=== PATIENT | female | born 1950 | race Caucasian/White ===

== ENCOUNTER 2018-07-06 17:24 | Inpatient (IN) | payer MEDICARE, MEDICAID ==
[2018-07-06] MEDS ORDERED: ACETAMINOPHEN 500 MG TABLET PO ONE (18:22)
--- NOTE | 2018-07-06 18:26 | Emergency Department Record ---
History of Present Illness - General Chief Complaint: Fever Stated Complaint: LOW BP,FEVER Time Seen by Provider: 07/06/18 18:10 Source: Patient Mode of Arrival: Wheelchair Limitations: No limitations - History of Present Illness Initial Comments: 68 yo female presents to ED for evaluation of fatigue and fever symptoms that began last night. Patient reports productive cough symptoms, low back pain, and diffuse myalgias. Patient reports a history of low blood pressure (90's/60' s) at her baseline, reports that she was told approximately 11 years ago that her adrenal glands were not functioning appropriately, but has not taken a supplemental steroid since that time. Complaint: Fever Onset/Timin -: Hour(s) Temperature Source: Oral Associated Symptoms: Nausea Treatments Prior to Arrival: None - Related Data Allergies Allergy/AdvReac Type Severity Reaction Status Date / Time NO KNOWN DRUG ALLERGY Allergy Unknown PT UNSURE Uncoded 07/06/18 17:39 OF REACTION Travel Screening - Travel/Exposure Within Last 30 Days Have you traveled within the last 30 days?: No - Travel Symptoms Symptom Screening: Fever (GT 100.4) Review of Systems Constitutional: Reports: Fever. Denies: Chills, Malaise, Night sweats Eyes: Denies: Eye discharge, Eye pain ENT: Denies: Congestion, Ear pain, Epistaxis Respiratory: Reports: Cough. Denies: Dyspnea Cardiovascular: Denies: Chest pain, Dyspnea on exertion Endocrine: Reports: Fatigue. Denies: Heat or cold intolerance Gastrointestinal: Denies: Abdominal pain, Nausea, Vomiting Genitourinary: Denies: Incontinence, Retention Musculoskeletal: Reports: Back pain. Denies: Arthralgia Skin: Denies: Bruising, Change in color Neurological: Denies: Abnormal gait, Confusion, Headache, Tingling, Tremors Psychiatric: Denies: Anxiety Hematological/Lymphatic: Denies: Anemia, Blood Clots Past Medical History - SOCIAL HISTORY Smoking Status: Current every day smoker Alcohol Use: None Drug Use: None - RESPIRATORY Hx Respiratory Disorders: Yes Hx Pneumonia: Yes - CARDIOVASCULAR Hx Cardio Disorders: No - NEURO Hx Neuro Disorders: No - GI Hx GI Disorders: No - Hx Genitourinary Disorders: No - ENDOCRINE Hx Endocrine Disorders: Yes Hx Thyroid Disease: Yes - MUSCULOSKELETAL Hx Musculoskeletal Disorders: No - PSYCH Hx Psych Problems: No - HEMATOLOGY/ONCOLOGY Hx Hematology/Oncology Disorders: No Family Medical History Any Significant Family History?: Yes Hx Cancer: Mother Hx Heart Disease: Father Hx Resp Disorders: Brother/Sister Physical Exam - General General Appearance: Alert, Oriented x3, Cooperative, Mild distress, Other (BP 96 /66 currently, IVFs infusing.) Limitations: No limitations - Head Head exam: Atraumatic, Normocephalic, Normal inspection Head exam detail: negative: Abrasion, Contusion, Sheth's sign, General tenderness, Hematoma, Laceration - Eye Eye exam: Normal appearance. negative: Conjunctival injection, Periorbital swelling, Periorbital tenderness, Scleral icterus - ENT Ear exam: negative: Auricular hematoma, Auricular trauma Nasal Exam: negative: Active bleeding, Discharge, Dried blood, Foreign body Mouth exam: negative: Drooling, Laceration, Muffled voice, Tongue elevation - Neck Neck exam: Normal inspection. negative: Meningismus, Tenderness - Respiratory Respiratory exam: Rhonchi. negative: Respiratory distress (Mild rhonchi right) , Stridor, Wheezes - Cardiovascular Cardiovascular Exam: Regular rate, Normal rhythm, Normal heart sounds - GI/Abdominal GI/Abdominal exam: Soft. negative: Rebound, Rigid, Tenderness - Rectal Rectal exam: Deferred - exam: Deferred - Extremities Extremities exam: Normal inspection. negative: Pedal edema, Tenderness - Neurological Neurological exam: Alert, Normal gait, Oriented X3 - Psychiatric Psychiatric exam: Normal affect, Normal mood - Skin Skin exam: Normal color. negative: Abrasion Type of lesion: negative: abrasion Course Vital Signs 07/06/18 07/06/18 17:29 17:44 Temperature 100.8 F H Pulse Rate 80 Respiratory 18 Rate Blood Pressure 81/58 Blood Pressure 96/59 [Right Arm] Pulse Ox 94 L - Reevaluation(s) Reevaluation #1: 07/06/18 19:33 Initial laboratory studies were reviewed: WBC 13.1 Lactic acid 1.0. UA pending at this time. Reevaluation #2: 07/06/18 19:37 Patient was reassessed, BP improved to 114/60's on re-examination. Patient will attempt to provide urine sample at this time. Rocephin ordered to infuse. Reevaluation #3: 07/06/18 20:00 CXR: Recurrence of pneumonia RML/RLL on examination COPD Patient has provided UA sample, awaiting results to determine subsequent antibiotic coverage and admission. Reevaluation #4: 07/06/18 20:14 UA was reviewed and appears negative for infection. Zithromax ordered to infuse, will admit for further evaluation and treatment. 07/06/18 20:20 Case was discussed with Dr. Dawkins, will admit for further evaluation and treatment. Medical Decision Making - Lab Data Result diagrams: 07/06/18 18:30 07/06/18 18:30 Disposition Disposition: Admit Clinical Impression: CAP (community acquired pneumonia) Qualifiers: Laterality: right Lung location: middle lobe of lung Qualified Code(s): J18.1 - Lobar pneumonia, unspecified organism Hypotension Qualifiers: Hypotension type: unspecified hypotension type Qualified Code(s): I95.9 - Hypotension, unspecified Disposition: Still a Patient at [facility] Decision to Admit: Admit from ER Decision to Admit Date: 07/06/18 Decision to Admit Time: 20:20 Condition: (2) Stable Forms: Patient Portal Access Time of Disposition: 20:20 Quality - Quality Measures Quality Measures: N/A - Blood Pressure Screening Does Patient Have Any of the Following: No Blood Pressure Classification: Normal BP Reading Systolic Measurement: 81 Diastolic Measurement: 58 Screening for High Blood Pressure: < Normal BP, F/U Not Required > [[id number]]
[2018-07-06] MEDS ORDERED: 0.9 % SODIUM CHLORIDE 1000ML 1,000 ML IV SCH (18:30)
[2018-07-06 18:36] LABS: HEMATOCRIT 43.5 % (35.0-47.0); HEMOGLOBIN 14.4 gm/dl (11.6-16.0); MEAN CELL VOLUME 94.6 fl (81-97); MEAN CORPUSCULAR HEMOGLOBIN 31.3 pg (27-33); MEAN CORPUSCULAR HGB CONC 33.1 g/dl (32-36); MEAN PLATELET VOLUME 11.2 fl (7.4-10.4); PLATELET COUNT 279 K/uL (130-400); RED CELL DISTRIBUTION WIDTH 13.5 % (11.5-14.5); WHITE BLOOD COUNT W/O DIFF 13.1 K/uL (4.2-12.2)
[2018-07-06 18:50] LABS: BLOOD UREA NITROGEN 15 mg/dL (8-23); CREATININE 0.7 mg/dL (0.5-0.9); EST GLOMERULAR FILTRATION RATE > 60 mL/min
[2018-07-06 18:51] LABS: TOTAL PROTEIN 6.9 g/dL (6.6-8.7)
[2018-07-06 18:53] LABS: GLUCOSE,RANDOM 88 mg/dL (74-109)
[2018-07-06 18:55] LABS: ALB/GLOB RATIO 1.6 (1.1-1.8); ALBUMIN 4.2 g/dL (4.0-5.0); ALT/SGPT 10 U/L (<33); AST/SGOT 17 U/L (10.0-35.0)
[2018-07-06 18:56] LABS: ALKALINE PHOSPHATASE 73 U/L (35-104)
[2018-07-06] MEDS ORDERED: CEFTRIAXONE 1GM/50ML BAG 1 GM/50 ML BAG IVPB ONE (19:37)
[2018-07-06 19:57] LABS: URINE APPEARANCE CLEAR; URINE BILIRUBIN NEGATIVE (NEGATIVE); URINE BLOOD SMALL (NEGATIVE); URINE COLOR YELLOW; URINE GLUCOSE (UA) NEGATIVE (NEGATIVE); URINE KETONE 15 mg/dL (NEGATIVE); URINE LEUKOCYTE ESTERASE NEGATIVE (NEGATIVE); URINE NITRITE NEGATIVE (NEGATIVE); URINE PROTEIN NEGATIVE (NEGATIVE); URINE UROBILINOGEN 0.2 E.U./dL (0.20 - 1.00)
[2018-07-06 20:12] LABS: URINE RBC 0 - 2 (NONE SEEN); URINE WBC NONE SEEN (0-2/hpf)
[2018-07-06 20:13] LABS: URINE MUCUS LIGHT
[2018-07-06] MEDS ORDERED: AZITHROMYCIN 500 MG in 0.9 % SODIUM CHLORIDE 250ML 250 ML IVPB ONE (20:15)
[2018-07-06] MEDS ORDERED: CEFTRIAXONE SODIUM 1 GM in 0.9 % SODIUM CHLORIDE 100ML 100 ML IVPB SCH (21:51)
[2018-07-06] MEDS ORDERED: LEVOTHYROXINE SODIUM 25 MCG TABLET PO SCH (21:51)
[2018-07-06] MEDS ORDERED: AZITHROMYCIN 500 MG in 0.9 % SODIUM CHLORIDE 250ML 250 ML IVPB SCH (21:51)
[2018-07-06] MEDS: 0.9 % SODIUM CHLORIDE 1000ML 1,000 ML IV PRN (22:31)
[2018-07-07] MEDS: ACETAMINOPHEN 500 MG TABLET PO PRN ×4 (05:23→23:41)
--- NOTE | 2018-07-07 05:38 | RADIOLOGY REPORT ---
EXAM: CHEST, TWO VIEWS HISTORY: PATIENT FEELING ILL STARTING YESTERDAY. TECHNIQUE: PA and lateral views of the chest were obtained. Comparison: Two view chest 01/24/17. FINDINGS: There is again seen to be some infiltrate on the right particularly in the mid to lower lung. This may represent acute pneumonitis that has recurred in a somewhat similar distribution in the right mid to lower lung. No definite acute infiltrate seen in the left. Apical pleural thickening bilaterally asymmetrically more prominent on the right which was the case previously as well. The heart is relatively small. The lungs appear hyperinflated suggesting underlying COPD. Mild scoliosis. IMPRESSION: 1. HYPERINFLATION CONSISTENT WITH COPD BEFORE. 2. THERE IS SOME INFILTRATE SCATTERED IN THE RIGHT MID TO LOWER LUNG WHICH MAY REPRESENT RECURRENT ACUTE PNEUMONITIS IN THIS LOCATION WITH A SOMEWHAT SIMILAR APPEARANCE SEEN BACK ON 01/24/17. 3. APICAL PLEURAL THICKENING BILATERALLY RIGHT GREATER THAN LEFT SIMILAR TO BEFORE. 4. SCOLIOSIS AGAIN NOTED. JOB NUMBER: [id number] MTDD
[2018-07-07] MEDS: LEVOTHYROXINE SODIUM 25 MCG TABLET PO SCH (06:37)
[2018-07-07] MEDS: 0.9 % SODIUM CHLORIDE 1000ML 1,000 ML IV PRN ×3 (06:38→23:43)
[2018-07-07 09:54] LABS: HEMATOCRIT 37.4 % (35.0-47.0); HEMOGLOBIN 12.3 gm/dl (11.6-16.0); MEAN CELL VOLUME 96.4 fl (81-97); MEAN CORPUSCULAR HEMOGLOBIN 31.7 pg (27-33); MEAN CORPUSCULAR HGB CONC 32.9 g/dl (32-36); MEAN PLATELET VOLUME 10.8 fl (7.4-10.4); PLATELET COUNT 225 K/uL (130-400); RED BLOOD COUNT 3.88 M/uL (3.80-5.40); RED CELL DISTRIBUTION WIDTH 13.5 % (11.5-14.5); WHITE BLOOD COUNT W/O DIFF 10.6 K/uL (4.2-12.2)
[2018-07-07] MEDS: GUAIFENESIN 600 MG TABCR PO SCH ×2 (10:09→21:44)
[2018-07-07 10:11] LABS: BLOOD UREA NITROGEN 12 mg/dL (8-23); CREATININE 0.6 mg/dL (0.5-0.9); EST GLOMERULAR FILTRATION RATE > 60 mL/min; GLUCOSE,RANDOM 177 mg/dL (74-109)
[2018-07-07] MEDS: IPRATROPIUM/ALBUTEROL (0.5MG/3MG) NEB INH PRN ×2 (10:24→14:01)
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
[2018-07-07] MEDS: ENOXAPARIN 40 MG/0.4 ML SYR SQ SCH (12:08)
[2018-07-07] MEDS: CEFTRIAXONE 1GM/50ML BAG 1 GM/50 ML BAG IVPB SCH (21:40)
[2018-07-07] MEDS: AZITHROMYCIN 500 MG TABLET PO SCH (21:43)
[2018-07-08] MEDS: ONDANSETRON HCL IV 4 MG/2 ML VIAL IVP PRN ×2 (00:02→17:14)
[2018-07-08] MEDS: LEVOTHYROXINE SODIUM 25 MCG TABLET PO SCH (06:58)
[2018-07-08] MEDS: 0.9 % SODIUM CHLORIDE 1000ML 1,000 ML IV PRN (08:27)
[2018-07-08 08:36] LABS: ABSOLUTE NEUTROPHIL COUNT 6.84; BASO % 0.1 % (0-6); EOS % 3.2 % (0-6); GRAN % 77.4 % (47-80); HEMATOCRIT 39.4 % (35.0-47.0); HEMOGLOBIN 12.9 gm/dl (11.6-16.0); LYMPH % 12.2 % (16-45); MEAN CELL VOLUME 96.3 fl (81-97); MEAN CORPUSCULAR HEMOGLOBIN 31.5 pg (27-33); MEAN CORPUSCULAR HGB CONC 32.7 g/dl (32-36); MEAN PLATELET VOLUME 10.9 fl (7.4-10.4); MONO % 7.1 % (0-9); PLATELET COUNT 235 K/uL (130-400); RED BLOOD COUNT 4.09 M/uL (3.80-5.40); RED CELL DISTRIBUTION WIDTH 13.4 % (11.5-14.5); WHITE BLOOD COUNT W/O DIFF 8.8 K/uL (4.2-12.2)
[2018-07-08 08:53] LABS: BLOOD UREA NITROGEN 7 mg/dL (8-23); CREATININE 0.6 mg/dL (0.5-0.9); EST GLOMERULAR FILTRATION RATE > 60 mL/min; GLUCOSE,RANDOM 166 mg/dL (74-109)
[2018-07-08] MEDS: ENOXAPARIN 40 MG/0.4 ML SYR SQ SCH (09:24)
[2018-07-08] MEDS: GUAIFENESIN 600 MG TABCR PO SCH ×2 (09:24→21:40)
--- NOTE | 2018-07-08 10:45 | Physician Progress Note ---
Subjective - Date Date of Physician Progress Note: 07/08/18 - Subjective Subjective Comment: 07/08/18: Patient A&O x 4, resting in bed. Patient reports headache and nausea throughout the night. Patient reports episodes of chills and sweating throughout the night with no recorded fever. Patient denies shortness of breath, productive cough, or vomiting. Reports continued intermittent nausea this morning. Reports mild relief of headache with acetaminophen. Objective - Vital Signs Vital Signs: Vital Signs - Last 24 Hrs Temp Pulse Pulse Resp BP BP Pulse Ox 07/08/18 08:00 97.8 F 56 L 16 101/63 97 07/08/18 07:46 20 07/08/18 04:00 98.2 F 80 20 119/68 94 L 07/08/18 00:00 98.6 F 74 20 117/71 94 L 07/07/18 20:00 98.0 F 75 22 118/61 96 07/07/18 15:59 99.4 F 07/07/18 15:00 98.9 F 75 16 98/56 99 07/07/18 14:01 71 18 96 07/07/18 13:46 99.1 F 97/54 - General General Appearance: Alert, Oriented x3, Cooperative, No acute distress Limitations: No limitations - Head Head exam: Atraumatic, Normocephalic, Normal inspection Head exam detail: negative: Abrasion, Contusion, Sheth's sign, General tenderness, Hematoma, Laceration - Eye Eye exam: Normal appearance. negative: Conjunctival injection, Periorbital swelling, Periorbital tenderness, Scleral icterus - ENT ENT exam: Mucous membranes moist Ear exam: Normal external inspection. negative: Auricular hematoma, Auricular trauma Nasal Exam: negative: Active bleeding, Discharge, Dried blood, Foreign body Mouth exam: Tongue normal. negative: Drooling, Laceration, Muffled voice, Tongue elevation - Neck Neck exam: Normal inspection. negative: Meningismus, Tenderness - Respiratory Respiratory exam: Decreased breath sounds. negative: Stridor, Wheezes - Cardiovascular Cardiovascular Exam: Regular rate, Normal rhythm, Normal heart sounds Peripheral Pulses: 2+: Radial (R), Radial (L), Dorsalis Pedis (R), Dorsalis Pedis (L) - GI/Abdominal GI/Abdominal exam: Soft, Normal bowel sounds. negative: Rebound, Rigid, Tenderness - Rectal Rectal exam: Deferred - exam: Deferred - Extremities Extremities exam: Normal inspection. negative: Pedal edema, Tenderness - Neurological Neurological exam: Alert, Normal gait, Oriented X3 - Psychiatric Psychiatric exam: Normal affect, Normal mood - Skin Skin exam: Normal color. negative: Abrasion Type of lesion: negative: abrasion Assessment and Plan - Assessment and Plan (1) CAP (community acquired pneumonia) Current Visit: Yes Status: Acute Qualifiers: Laterality: right Lung location: middle lobe of lung Qualified Code(s): J18.1 - Lobar pneumonia, unspecified organism Base Code: J18.9 - PNEUMONIA, UNSPECIFIED ORGANISM Comment: 07/08/18: -CXR: COPD, RML and RLL return of infiltrates from Jan 2017, apical pleural thickening noted -Daily 1ppd smoker -WBC 13.1, lactic acid 1.0 upon admission, WBC 8.8 today -Blood cultures pending -Rocephin and Zithromax continued -Vital signs q4h, afebrile since admission -Duoneb q4h prn -Regular diet (2) Hypotension Current Visit: Yes Status: Acute Qualifiers: Hypotension type: unspecified hypotension type Qualified Code(s): I95.9 - Hypotension, unspecified Base Code: I95.9 - HYPOTENSION, UNSPECIFIED Comment: 07/08/18: -Hypotenison noted in ED 80s/60s -1 liter NS given -History of adrenal insufficiency with chronic hypotension -Asymtpomatic of hypotension -BP 101/63 today -Vital signs q4h (3) DVT prophylaxis Current Visit: Yes Status: Acute Base Code: Z29.9 - ENCOUNTER FOR PROPHYLACTIC MEASURES, UNSPECIFIED Comment: 07/08/18: -High risk due to age, hospitalization, and illness -Lovenox 40mg SQ -Encourage ambulation within the room (4) Full code status Current Visit: Yes Status: Acute Base Code: Z78.9 - OTHER SPECIFIED HEALTH STATUS Comment: 07/08/18: -Full code status this admission Results - Labs Result Diagrams: 07/08/18 08:28 07/08/18 08:28 Labs Last 24 Hours: Laboratory Results - last 24 hr 07/08/18 07/08/18 08:28 08:28 WBC 8.8 RBC 4.09 Hgb 12.9 Hct 39.4 MCV 96.3 MCH 31.5 MCHC 32.7 RDW 13.4 Plt Count 235 MPV 10.9 H Gran % 77.4 Lymphocytes % 12.2 L Monocytes % 7.1 Eosinophils % 3.2 Basophils % 0.1 Absolute Neutrophils 6.84 Sodium 141 Potassium 3.6 Chloride 107 Carbon Dioxide 25.0 Anion Gap 9.0 BUN 7 L Creatinine 0.6 Estimated GFR > 60 Random Glucose 166 H Calcium 9.1 DVT/PE Assessment - Risk for VTE Risk for VTE: No Risk Level: Moderate Risk Assessment Date: 07/07/18 Risk Assessment Time: 11:06 VTE Orders Placed or Will Be Placed: Yes - Active Medicaitons Current Medications: Current Medications Acetaminophen (Tylenol 500mg Tab) 1,000 mg PO Q6H PRN PRN Reason: PAIN - MILD(1-4)/FEVER Last Admin: 07/07/18 23:41 Dose: 1,000 mg Documented by: Albuterol/Ipratropium (Duoneb) 3 ml INH RESP.Q4H PRN PRN Reason: WHEEZING Last Admin: 07/07/18 14:01 Dose: 3 ml Documented by: Azithromycin (Zithromax) 500 mg PO QHS [facility] Last Admin: 07/07/18 21:43 Dose: 500 mg Documented by: Enoxaparin Sodium (Lovenox) 40 mg SQ DAILY [facility] Last Admin: 07/08/18 09:24 Dose: 40 mg Documented by: Guaifenesin (Mucinex) 600 mg PO BID [facility] Last Admin: 07/08/18 09:24 Dose: 600 mg Documented by: Sodium Chloride () 1,000 mls @ 125 mls/hr IV .Q8H PRN PRN Reason: LARGE VOLUME IV Last Admin: 07/08/18 08:27 Dose: 125 mls/hr Documented by: CEFTRIAXONE 1GM/50ML BAG (Ceftriaxone 1 Gm-D5w Bag) 1 gm in 50 mls @ 100 mls/hr IVPB Q24H [facility] Last Infusion: 07/07/18 22:15 Dose: Infused Documented by: Levothyroxine Sodium (Synthroid) 25 mcg PO DAILYTHY [facility] Last Admin: 07/08/18 06:58 Dose: 25 mcg Documented by: Ondansetron HCl (Zofran) 4 mg IVP Q6H PRN PRN Reason: NAUSEA Last Admin: 07/08/18 00:02 Dose: 4 mg Documented by: AMI Plan - Labs Result Diagrams: 07/08/18 08:28 07/08/18 08:28
[2018-07-08] MEDS ORDERED: 0.9 % SODIUM CHLORIDE 1000ML 1,000 ML IV PRN (10:47)
[2018-07-08] MEDS: ACETAMINOPHEN 500 MG TABLET PO PRN (15:32)
[2018-07-08] MEDS: IPRATROPIUM/ALBUTEROL (0.5MG/3MG) NEB INH PRN (17:42)
[2018-07-08] MEDS: AZITHROMYCIN 500 MG TABLET PO SCH (21:40)
[2018-07-08] MEDS: CEFTRIAXONE 1GM/50ML BAG 1 GM/50 ML BAG IVPB SCH (21:41)
[2018-07-09] MEDS: ACETAMINOPHEN 500 MG TABLET PO PRN ×2 (04:43→11:03)
[2018-07-09] MEDS: LEVOTHYROXINE SODIUM 25 MCG TABLET PO SCH (06:00)
[2018-07-09 06:56] LABS: ABSOLUTE NEUTROPHIL COUNT 5.55; BASO % 0.5 % (0-6); EOS % 5.6 % (0-6); GRAN % 72.1 % (47-80); HEMATOCRIT 39.3 % (35.0-47.0); HEMOGLOBIN 12.9 gm/dl (11.6-16.0); LYMPH % 13.1 % (16-45); MEAN CELL VOLUME 95.4 fl (81-97); MEAN CORPUSCULAR HEMOGLOBIN 31.3 pg (27-33); MEAN CORPUSCULAR HGB CONC 32.8 g/dl (32-36); MEAN PLATELET VOLUME 11.2 fl (7.4-10.4); MONO % 8.7 % (0-9); PLATELET COUNT 276 K/uL (130-400); RED BLOOD COUNT 4.12 M/uL (3.80-5.40); RED CELL DISTRIBUTION WIDTH 13.5 % (11.5-14.5); WHITE BLOOD COUNT W/O DIFF 7.7 K/uL (4.2-12.2)
[2018-07-09 07:12] LABS: BLOOD UREA NITROGEN 10 mg/dL (8-23); CREATININE 0.6 mg/dL (0.5-0.9); EST GLOMERULAR FILTRATION RATE > 60 mL/min; GLUCOSE,RANDOM 107 mg/dL (74-109)
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
[2018-07-09] MEDS: GUAIFENESIN 600 MG TABCR PO SCH (11:03)
[2018-07-09] MEDS: ENOXAPARIN 40 MG/0.4 ML SYR SQ SCH (11:04)
== END 2018-07-09 13:50 | disposition home or self-care (01) | DRG 195 ==
LOC: ER 17:24 → MEDSURG 21:12
PROVIDERS: ADMIT Emergency Medicine; ATTEND Internal Medicine
DX: J18.1 Lobar pneumonia, unspecified organism (principal); I95.9 Hypotension, unspecified; R05 Cough; E03.9 Hypothyroidism, unspecified; G50.0 Trigeminal neuralgia; F17.210 Nicotine dependence, cigarettes, uncomplicated
CPT/HCPCS: 83605; 80053; 85027; 71046; J0696; 80048; 81001; 85025; 94640; 94667; 96365; 96374; 99223; 99232; 99239; 99285; J0456; J1650; J2405; J7030; J7050

== ENCOUNTER 2018-11-14 18:04 | Emergency (ER) | payer MEDICARE, MEDICAID ==
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
[2018-11-14 18:34] LABS: ABSOLUTE NEUTROPHIL COUNT 5.06; BASO % 0.7 % (0-6); EOS % 2.5 % (0-6); GRAN % 65.7 % (47-80); HEMATOCRIT 41.9 % (35.0-47.0); HEMOGLOBIN 13.5 gm/dl (11.6-16.0); LYMPH % 22.1 % (16-45); MEAN CELL VOLUME 96.8 fl (81-97); MEAN CORPUSCULAR HEMOGLOBIN 31.2 pg (27-33); MEAN CORPUSCULAR HGB CONC 32.2 g/dl (32-36); MEAN PLATELET VOLUME 10.4 fl (7.4-10.4); PLATELET COUNT 296 K/uL (130-400); RED BLOOD COUNT 4.33 M/uL (3.80-5.40); RED CELL DISTRIBUTION WIDTH 13.4 % (11.5-14.5); WHITE BLOOD COUNT W/O DIFF 7.7 K/uL (4.2-12.2)
[2018-11-14 18:47] LABS: BLOOD UREA NITROGEN 27 mg/dL (8-23); CREATININE 0.8 mg/dL (0.5-0.9); EST GLOMERULAR FILTRATION RATE > 60 mL/min
[2018-11-14 18:50] LABS: GLUCOSE,RANDOM 87 mg/dL (74-109)
== END 2018-11-14 19:08 | disposition short-term general hospital (02) ==
LOC: ER 18:04
DX: I80.3 Phlebitis and thrombophlebitis of lower extremities, unspecified (principal); M79.662 Pain in left lower leg; F17.210 Nicotine dependence, cigarettes, uncomplicated
CPT/HCPCS: 80048; 85025; 85379; 99284